=== PATIENT | female | born 1990 | race Hispanic/Latino ===

== ENCOUNTER 2017-11-02 12:58 | Emergency (ER) | payer MEDICAID, OTHER ==
[2017-11-02 17:29] LABS: Basophils % (Auto) 0.4 % (0.0-1.8); Eosinophils # (Auto) 0.1 K/mm3 (0.0-0.4); Hematocrit 44.8 % (30.3-42.9); Hemoglobin 14.8 gm/dl (10.1-14.3); Lymphocytes # (Auto) 1.5 K/mm3 (1.2-5.4); Lymphocytes % (Auto) 14.8 % (13.4-35.0); Mean Corpuscular HGB Conc 33 % (30-34); Mean Corpuscular Hemoglobin 27 pg (28-32); Mean Corpuscular Volume 81 fl (79-97); Monocytes # (Auto) 1.1 K/mm3 (0.0-0.8); Monocytes % (Auto) 10.8 % (0.0-7.3); Platelet Count 219 K/mm3 (140-440); Red Blood Count 5.52 M/mm3 (3.65-5.03); Red Cell Distribution Width 14.3 % (13.2-15.2)
--- NOTE | 2017-11-02 17:32 | Emergency Department Report ---
Blank Doc - Documentation Documentation: 27-year-old female presents to the hospital with complaints of continued cough, fevers, and generalized body aches and intermittent wheezing despite completing a course of Z-Edwardo and Medrol Dosepak several days ago. Patient had a fever 100.4 and took Motrin prior to arrival. She did receive a flu shot this season. Mild nausea without vomiting or diarrhea. Positive sore throat Patient presents with tachycardia Orthostatics positive CBC, BMP, hcg, chest x-ray NS 1 L Zofran 4mg toradol 30mg
[2017-11-02] MEDS ORDERED: TORADOL IV ONE (17:37)
[2017-11-02] MEDS ORDERED: ZOFRAN IV ONE (17:37)
[2017-11-02] MEDS ORDERED: NACL 0.9% 1000 ML 1,000 ML IV ONE ×2 (17:37→19:46)
[2017-11-02] MEDS ORDERED: TYLENOL PO ONE (17:42)
[2017-11-02 17:49] LABS: BUN/Creatinine Ratio 16; Blood Urea Nitrogen 8 mg/dL (7-17); Calcium 9.4 mg/dL (8.4-10.2); Hemolysis Index 40
--- NOTE | 2017-11-02 18:43 | XRay Report ---
FINAL REPORT PROCEDURE: PA and lateral chest x-ray TECHNIQUE: PA and lateral chest radiographs were obtained. CPT 98063 HISTORY: cough, fever COMPARISON: No prior studies are available for comparison. FINDINGS: Heart size and pulmonary vasculature appear normal. There is a small amount of patchy alveolar density present in the right and left lower lobes, left side greater than right. Some of this may represent atelectasis. Infiltrates cannot be excluded given the clinical presentation. No effusions are seen. No acute bony abnormalities are identified. IMPRESSION: Small amount of scattered patchy alveolar densities present in both lower lobes left side greater than right as described. Some of this may represent atelectasis. Subsegmental infiltrate on the left cannot be excluded.
[2017-11-02] MEDS ORDERED: PERCOCET 5/325 PO ONE (19:42)
[2017-11-02] MEDS ORDERED: DUONEB *Not for PRN Use IH ONE (19:42)
[2017-11-02] MEDS ORDERED: LEVAQUIN PO ONE (19:44)
[2017-11-02] MEDS ORDERED: ATROVENT IH ONE (20:41)
[2017-11-02] MEDS ORDERED: PROVENTIL IH ONE (20:41)
[2017-11-02 20:51] VITALS: BP 120/78
--- NOTE | 2017-11-02 20:57 | Emergency Department Report ---
- General Chief Complaint: Upper Respiratory Infection Stated Complaint: FEVER/COUGH/BODY ACHES Time Seen by Provider: 11/02/17 17:15 Source: patient Mode of arrival: Ambulatory Limitations: No Limitations - History of Present Illness Initial Comments: This is a 27-year-old female nontoxic, well nourished in appearance, no acute signs of distress presents to the ED with c/o of productive cough, fever, chills , body aches, rhinorrhea, sore throat, nasal congestion x2 days. Patient stated she was diangosed by her PCP with PNA and has been ob zpak which she just finished several days ago. Patient also stated that she was on a Medrol Dosepak. Patient stated that symptoms subsided and came back 2 days ago. Patient stated has history of asthma exacerbation during pollen season. Patient describes productive cough as yellow mucus production. Patient denies any sick contact. Patient denies any recent travels, long car, recent hospital stays. Patient denies any calf pain or calf tenderness. Patient denies any chest pain, short of breath, fever, chills, nausea, vomiting, hemoptysis, numbness, tingling, headache or stiff neck. Allergies includes Augmentin and Metroclopramide. PMH includes asthma and kidney stones. MD Complaint: cough, sore throat, rhinorrhea, nasal congestion -: days(s) (2) Severity: mild Severity scale (0 -10): 0 Consistency: constant Improves With: nothing Worsens With: nothing Associated Symptoms: fever, chills, rhinorrhea, nasal congestion, sore throat, cough. denies: myalgias, diaphoresis, headache, stiff neck, chest pain, shortness of breath, abdominal pain, nausea, vomiting, diarrhea, dysuria, rash, confusion, right sweats, weight loss, epistaxis, hoarseness, ear pain Treatments Prior to Arrival: none - Related Data Home Medications Medication Instructions Recorded Confirmed Last Taken Ibuprofen [Motrin] 800 mg PO Q8HR PRN 09/20/15 09/20/15 09/19/15 Nitrofurantoin Holmes/M-Cryst 100 mg PO Q12HR 09/20/15 09/24/15 09/23/15 21:00 [Macrobid CAP] Oxycodone HCl/Acetaminophen 1 each PO Q6HR PRN 09/20/15 09/24/15 09/23/15 21:00 [Percocet 7.5/325 mg] Pnv No.95/Ferrous Fum/Folic AC 1 each PO DAILY 09/20/15 09/24/15 09/23/15 08:00 [ Caplet] Previous Rx's Medication Instructions Recorded Last Taken Type ALBUTEROL Inhaler [ProAir HFA 2 puff IH QID PRN #1 inhalation 11/02/17 Unknown Rx Inhaler] Benzonatate [Tessalon Perles] 100 mg PO Q8HR PRN #20 capsule 11/02/17 Unknown Rx Fluconazole [Diflucan TAB] 150 mg PO ONCE #1 tablet 11/02/17 Unknown Rx Ibuprofen [Motrin] 600 mg PO Q8H PRN #30 tablet 11/02/17 Unknown Rx Levofloxacin [Levaquin TAB] 750 mg PO QDAY #7 tablet 11/02/17 Unknown Rx Prednisone [predniSONE 10 mg 10 mg PO .TAPER #1 tab.ds.pk 11/02/17 Unknown Rx (6-Day Pack, 21 Tabs)] Allergies Allergy/AdvReac Type Severity Reaction Status Date / Time amoxicillin trihydrate Allergy Hives Verified 09/20/15 18:37 [From Augmentin] potassium clavulanate Allergy Hives Verified 09/20/15 18:37 [From Augmentin] metoclopramide HCl AdvReac ANXIETY Verified 09/20/15 18:37 [From Reglan] ED Review of Systems ROS: Stated complaint: FEVER/COUGH/BODY ACHES Other details as noted in HPI Constitutional: chills, fever Eyes: denies: eye pain, eye discharge, vision change ENT: denies: ear pain, throat pain Respiratory: cough. denies: shortness of breath, wheezing Cardiovascular: denies: chest pain, palpitations Endocrine: no symptoms reported Gastrointestinal: denies: abdominal pain, nausea, diarrhea Genitourinary: denies: urgency, dysuria, discharge Musculoskeletal: denies: back pain, joint swelling, arthralgia Skin: denies: rash, lesions Neurological: denies: headache, weakness, paresthesias Psychiatric: denies: anxiety, depression Hematological/Lymphatic: denies: easy bleeding, easy bruising ED Past Medical Hx - Past Medical History Hx Hypertension: No Hx Renal Disease: No Hx Seizures: No Hx Kidney Stones: Yes Hx Asthma: Yes (Seasonal, uses PRN Albuterol, last used 7 months ago) Hx HIV: No - Surgical History Past Surgical History?: Yes Additional Surgical History: TUBAL LIGATION - Social History Smoking Status: Never Smoker Substance Use Type: None - Medications Home Medications: Home Medications Medication Instructions Recorded Confirmed Last Taken Type Ibuprofen [Motrin] 800 mg PO Q8HR PRN 09/20/15 09/20/15 09/19/15 History Nitrofurantoin Holmes/M-Cryst 100 mg PO Q12HR 09/20/15 09/24/15 09/23/15 21:00 History [Macrobid CAP] Oxycodone HCl/Acetaminophen 1 each PO Q6HR PRN 09/20/15 09/24/15 09/23/15 21:00 History [Percocet 7.5/325 mg] Pnv No.95/Ferrous Fum/Folic AC 1 each PO DAILY 09/20/15 09/24/15 09/23/15 08:00 History [ Caplet] ALBUTEROL Inhaler [ProAir HFA 2 puff IH QID PRN #1 inhalation 11/02/17 Unknown Rx Inhaler] Benzonatate [Tessalon Perles] 100 mg PO Q8HR PRN #20 capsule 11/02/17 Unknown Rx Fluconazole [Diflucan TAB] 150 mg PO ONCE #1 tablet 11/02/17 Unknown Rx Ibuprofen [Motrin] 600 mg PO Q8H PRN #30 tablet 11/02/17 Unknown Rx Levofloxacin [Levaquin TAB] 750 mg PO QDAY #7 tablet 11/02/17 Unknown Rx Prednisone [predniSONE 10 mg 10 mg PO .TAPER #1 tab.ds.pk 11/02/17 Unknown Rx (6-Day Pack, 21 Tabs)] ED Physical Exam - General Limitations: No Limitations General appearance: alert, in no apparent distress - Head Head exam: Present: atraumatic, normocephalic - Eye Eye exam: Present: normal appearance Pupils: Present: normal accommodation - ENT ENT exam: Present: mucous membranes moist, TM's normal bilaterally, normal external ear exam - Expanded ENT Exam Expanded Ear exam: Present: normal external inspection Mouth exam: Present: normal external inspection, tongue normal. Absent: drooling, trismus, muffled voice, tongue elevation, laceration Teeth exam: Present: normal inspection Throat exam: Positive: tonsillar erythema, other (Uvula midline. No abscess or swelling. ). Negative: tonsillomegaly, tonsillar exudate, R peritonsillar mass , L peritonsillar mass - Neck Neck exam: Present: normal inspection, full ROM. Absent: tenderness, meningismus, lymphadenopathy - Respiratory Respiratory exam: Present: normal lung sounds bilaterally, wheezes (bilateral upper lobes). Absent: respiratory distress, rales, rhonchi, stridor, chest wall tenderness, accessory muscle use, decreased breath sounds, prolonged expiratory - Cardiovascular Cardiovascular Exam: Present: regular rate, normal rhythm, tachycardia, normal heart sounds. Absent: irregular rhythm, systolic murmur, diastolic murmur, rubs , gallop - GI/Abdominal GI/Abdominal exam: Present: soft, normal bowel sounds. Absent: distended, tenderness, guarding, rebound, rigid, diminished bowel sounds - Rectal Rectal exam: Present: deferred - Extremities Exam Extremities exam: Present: normal inspection, full ROM, normal capillary refill. Absent: tenderness, calf tenderness - Back Exam Back exam: Present: normal inspection, full ROM - Neurological Exam Neurological exam: Present: alert, oriented X3, normal gait - Psychiatric Psychiatric exam: Present: normal affect, normal mood - Skin Skin exam: Present: warm, dry, intact, normal color. Absent: rash ED Course Vital Signs 11/02/17 11/02/17 11/02/17 13:02 17:40 17:59 Temperature 98.1 F 99.6 F Pulse Rate 110 H Pulse Rate [ Anterior Bilateral Throughout] Respiratory 19 20 Rate Respiratory Rate [Anterior Bilateral Throughout] Blood Pressure 119/77 Blood Pressure [Left] O2 Sat by Pulse 92 Oximetry 11/02/17 11/02/17 11/02/17 19:29 19:53 20:50 Temperature 98.9 F Pulse Rate 103 H 96 H Pulse Rate [ 113 H Anterior Bilateral Throughout] Respiratory 16 18 Rate Respiratory 20 Rate [Anterior Bilateral Throughout] Blood Pressure 103/61 Blood Pressure 120/78 [Left] O2 Sat by Pulse 93 94 Oximetry - Reevaluation(s) Reevaluation #1: 11/02/17 21:06 Patient is speaking in full sentences with no signs of distress noted. - Consultations Consultation #1: 11/02/17 21:06 Patient has been consulted with Dr. Ibrahim about patient history, physical exam, and labs and examined and screened patient and agrees to ED plan of care. ED Medical Decision Making - Lab Data Result diagrams: 11/02/17 17:05 11/02/17 17:05 - Medical Decision Making This is a 27-year-old female that presents with PNA and asthma exacerbation. Patient is stable and was examined by me and Dr. Ibrahim. Chest x-ray has been obtained and dictated by radiologist. Patient is notified of x-ray results with no questions noted. Patient received the first dose of LEvo and patient is discharged with Levo. Patient also received hydration and neb treatments which patient stated symptoms has subsided and resolved. Patients wheezing has subsided. Heart rate and pulse OX better prior to discharge. Patient was instructed to increase hydration, rest and take Motrin for fever episodes. Patient received tesslone perrls in the ED. Vitals stable. Patient is nonfebrile and normal heart rate. Patient was instructed Follow-up with a primary care doctor in 3-5 days or if symptoms worsen and continue return to emergency room as soon as possible. At time time of discharge, the patient does not seem toxic or ill in appearance. No acute signs of distress noted. Patient agrees to discharge treatment plan of care. No further questions noted by the patient. Critical care attestation.: If time is entered above; I have spent that time in minutes in the direct care of this critically ill patient, excluding procedure time. ED Disposition Clinical Impression: PNA (pneumonia) Qualifiers: Pneumonia type: due to unspecified organism Laterality: left Lung location: unspecified part of lung Qualified Code(s): J18.9 - Pneumonia, unspecified organism Asthma exacerbation Qualifiers: Asthma severity: mild Asthma persistence: intermittent Qualified Code(s): J45.21 - Mild intermittent asthma with (acute) exacerbation Disposition: DC-01 TO HOME OR SELFCARE Is pt being admited?: No Does the pt Need Aspirin: No Condition: Stable Instructions: Asthma (ED), Bacterial Pneumonia (ED) Additional Instructions: Follow-up with a primary care doctor in 3-5 days or if symptoms worsen and continue return to emergency room as soon as possible. Prescriptions: ALBUTEROL Inhaler [ProAir HFA Inhaler] 2 puff IH QID PRN #1 inhalation PRN Reason: Shortness Of Breath Benzonatate [Tessalon Perles] 100 mg PO Q8HR PRN #20 capsule PRN Reason: Cough Fluconazole [Diflucan TAB] 150 mg PO ONCE #1 tablet Ibuprofen [Motrin] 600 mg PO Q8H PRN #30 tablet PRN Reason: Pain Levofloxacin [Levaquin TAB] 750 mg PO QDAY #7 tablet Prednisone [predniSONE 10 mg (6-Day Pack, 21 Tabs)] 10 mg PO .TAPER #1 tab.ds.pk Referrals: CHRISTOPHE SCHERER MD [Primary Care Provider] - 3-5 Days PRIMARY MD JUANITO [Referring] - 3-5 Days JAROD CONWAY MD [Staff Physician] - 3-5 Days [facility] [Outside] - 3-[address] [facility] [Outside] - 3-5 Days Forms: Work/School Release Form(ED)
== END 2017-11-02 21:55 | disposition home or self-care (01) ==
LOC: ED 12:58
DX: J18.9 Pneumonia, unspecified organism (principal); J45.21 Mild intermittent asthma with (acute) exacerbation
CPT/HCPCS: 36415; 71046; 80048; 84703; 85025; 94640; 96361; 96374; 96375; 99284; J1885; J2405; J2930; J7030

== ENCOUNTER 2017-11-03 22:21 | Inpatient (IN) | payer OTHER ==
--- NOTE | 2017-11-04 01:26 | XRay Report ---
FINAL REPORT EXAM: XR CHEST ROUTINE 2V HISTORY: Shortness of breath TECHNIQUE: PA and lateral views of the chest were submitted. Comparison is made to the study of 11/02/2017. FINDINGS: The heart size and mediastinum appear normal. There is minimal atelectatic changes in left lung base. Pleural fluid is not seen. The skeletal structures appear well maintained. IMPRESSION: Minimal atelectatic changes left lung base. No evidence of pneumonia or congestion.
[2017-11-04 02:05] LABS: Basophils % (Auto) 0.1 % (0.0-1.8); Hematocrit 39.7 % (30.3-42.9); Hemoglobin 13.2 gm/dl (10.1-14.3); Lymphocytes # (Auto) 1.1 K/mm3 (1.2-5.4); Lymphocytes % (Auto) 8.6 % (13.4-35.0); Mean Corpuscular HGB Conc 33 % (30-34); Mean Corpuscular Hemoglobin 27 pg (28-32); Mean Corpuscular Volume 80 fl (79-97); Monocytes # (Auto) 0.8 K/mm3 (0.0-0.8); Monocytes % (Auto) 6.1 % (0.0-7.3); Platelet Count 264 K/mm3 (140-440); Red Blood Count 4.96 M/mm3 (3.65-5.03); Red Cell Distribution Width 14.8 % (13.2-15.2)
[2017-11-04 02:14] LABS: BUN/Creatinine Ratio 25; Blood Urea Nitrogen 10 mg/dL (7-17); Calcium 9.2 mg/dL (8.4-10.2); Hemolysis Index 8
[2017-11-04] MEDS ORDERED: ATROVENT IH ONE (08:41)
[2017-11-04] MEDS ORDERED: PROVENTIL IH ONE (08:41)
[2017-11-04] MEDS ORDERED: NACL 0.9% 1000 ML 1,000 ML IV ONE (08:41)
[2017-11-04] MEDS ORDERED: MORPHINE IV ONE (08:42)
[2017-11-04] MEDS ORDERED: ZOFRAN IV ONE (08:43)
--- NOTE | 2017-11-04 08:48 | Emergency Department Report ---
- General Chief Complaint: Dyspnea/Respdistress Stated Complaint: KEN Time Seen by Provider: 11/04/17 08:30 Source: patient Mode of arrival: Ambulatory Limitations: No Limitations - History of Present Illness Initial Comments: 27-year-old female with past medical history of asthma presents to the hospital with persistent cough, chills, and shortness of breath. Patient was seen and evaluated in the ER by myself on November 02. At that time x-ray suggestive of bilateral pneumonia. Patient had orthostatic vital signs with increased heart rate with standing and wheezing during ED presentation. After receiving Solu- Medrol, Levaquin, normal saline, cough and pain medicine patient's symptoms improved. Patient offered admission but declined because she felt better. Since being discharged she had taking the prescribed Levaquin, prednisone, Motrin, Tessalon Perles, and albuterol treatments she reports feeling worse instead of better. She continues to have cough, chills, and shortness of breath. She complains of bilateral burning pain to her chest worse with inspiration. Prior to her presentation on the patient had completed a course of Medrol Dosepak and Z-Edwardo. - Related Data Home Medications Medication Instructions Recorded Confirmed Last Taken Ibuprofen [Motrin] 800 mg PO Q8HR PRN 09/20/15 09/20/15 09/19/15 Nitrofurantoin Nobles/M-Cryst 100 mg PO Q12HR 09/20/15 09/24/15 09/23/15 21:00 [Macrobid CAP] Oxycodone HCl/Acetaminophen 1 each PO Q6HR PRN 09/20/15 09/24/15 09/23/15 21:00 [Percocet 7.5/325 mg] Pnv No.95/Ferrous Fum/Folic AC 1 each PO DAILY 09/20/15 09/24/15 09/23/15 08:00 [ Caplet] Previous Rx's Medication Instructions Recorded Last Taken Type ALBUTEROL Inhaler [ProAir HFA 2 puff IH QID PRN #1 inhalation 11/02/17 Unknown Rx Inhaler] Benzonatate [Tessalon Perles] 100 mg PO Q8HR PRN #20 capsule 11/02/17 Unknown Rx Fluconazole [Diflucan TAB] 150 mg PO ONCE #1 tablet 11/02/17 Unknown Rx Ibuprofen [Motrin] 600 mg PO Q8H PRN #30 tablet 11/02/17 Unknown Rx Levofloxacin [Levaquin TAB] 750 mg PO QDAY #7 tablet 11/02/17 Unknown Rx Prednisone [predniSONE 10 mg 10 mg PO .TAPER #1 tab.ds.pk 11/02/17 Unknown Rx (6-Day Pack, 21 Tabs)] Allergies Allergy/AdvReac Type Severity Reaction Status Date / Time amoxicillin trihydrate Allergy Hives Verified 09/20/15 18:37 [From Augmentin] potassium clavulanate Allergy Hives Verified 09/20/15 18:37 [From Augmentin] metoclopramide HCl AdvReac ANXIETY Verified 09/20/15 18:37 [From Reglan] ED Review of Systems ROS: Stated complaint: KEN Other details as noted in HPI Comment: All other systems reviewed and negative ED Past Medical Hx - Past Medical History Previous Medical History?: Yes Hx Hypertension: No Hx Renal Disease: No Hx Seizures: No Hx Kidney Stones: Yes Hx Asthma: Yes (Seasonal, uses PRN Albuterol, last used 7 months ago) Hx HIV: No - Surgical History Past Surgical History?: Yes Additional Surgical History: TUBAL LIGATION - Social History Smoking Status: Never Smoker - Medications Home Medications: Home Medications Medication Instructions Recorded Confirmed Last Taken Type Ibuprofen [Motrin] 800 mg PO Q8HR PRN 09/20/15 09/20/15 09/19/15 History Nitrofurantoin Nobles/M-Cryst 100 mg PO Q12HR 09/20/15 09/24/15 09/23/15 21:00 History [Macrobid CAP] Oxycodone HCl/Acetaminophen 1 each PO Q6HR PRN 09/20/15 09/24/15 09/23/15 21:00 History [Percocet 7.5/325 mg] Pnv No.95/Ferrous Fum/Folic AC 1 each PO DAILY 09/20/15 09/24/15 09/23/15 08:00 History [ Caplet] ALBUTEROL Inhaler [ProAir HFA 2 puff IH QID PRN #1 inhalation 11/02/17 Unknown Rx Inhaler] Benzonatate [Tessalon Perles] 100 mg PO Q8HR PRN #20 capsule 11/02/17 Unknown Rx Fluconazole [Diflucan TAB] 150 mg PO ONCE #1 tablet 11/02/17 Unknown Rx Ibuprofen [Motrin] 600 mg PO Q8H PRN #30 tablet 11/02/17 Unknown Rx Levofloxacin [Levaquin TAB] 750 mg PO QDAY #7 tablet 11/02/17 Unknown Rx Prednisone [predniSONE 10 mg 10 mg PO .TAPER #1 tab.ds.pk 11/02/17 Unknown Rx (6-Day Pack, 21 Tabs)] ED Physical Exam - General Limitations: No Limitations - Other Other exam information: General: No limitations, patient is alert in no acute distress Head exam: Atraumatic, normocephalic Eyes exam: Normal appearance ENT: Moist mucous membrane, normal oropharynx Neck exam: Normal inspection, full range of motion, no meningismus nontender Respiratory exam: No tachypnea, bilateral Cardiovascular: Tachycardic regular rhythm Abdomen: Soft, nondistended, and nontender, with normal bowel sounds, no rebound, or guarding Extremity: Full range of motion normal inspection no deformity, tenderness or edema Back: Normal Inspection, full range of motion, no tenderness Neurologic: Alert, oriented x3, cranial nerves intact, no motor or sensory deficit Psychiatric: normal affect, normal mood Skin: Warm, dry, intact ED Course Vital Signs 11/04/17 11/04/17 11/04/17 01:08 04:33 07:28 Temperature 97.4 F L 98.0 F Pulse Rate 83 100 H Pulse Rate [ Anterior Bilateral Throughout] Respiratory 18 16 Rate Respiratory Rate [Anterior Bilateral Throughout] Blood Pressure 117/84 118/65 Blood Pressure [Left] O2 Sat by Pulse 94 96 97 Oximetry 11/04/17 11/04/17 11/04/17 07:30 07:35 07:45 Temperature 98.3 F Pulse Rate 121 H 120 H 107 H Pulse Rate [ Anterior Bilateral Throughout] Respiratory 25 H 20 18 Rate Respiratory Rate [Anterior Bilateral Throughout] Blood Pressure 110/59 Blood Pressure 116/60 [Left] O2 Sat by Pulse 97 98 89 Oximetry 11/04/17 11/04/17 11/04/17 08:00 08:15 08:30 Temperature Pulse Rate 121 H 119 H 129 H Pulse Rate [ Anterior Bilateral Throughout] Respiratory 21 19 20 Rate Respiratory Rate [Anterior Bilateral Throughout] Blood Pressure 121/55 118/69 118/69 Blood Pressure [Left] O2 Sat by Pulse 93 89 97 Oximetry 11/04/17 11/04/17 11/04/17 08:46 09:00 09:05 Temperature Pulse Rate 117 H 118 H Pulse Rate [ 116 H Anterior Bilateral Throughout] Respiratory 20 25 H Rate Respiratory 19 Rate [Anterior Bilateral Throughout] Blood Pressure 118/69 118/69 Blood Pressure [Left] O2 Sat by Pulse 95 100 Oximetry 11/04/17 11/04/17 11/04/17 09:16 09:27 09:57 Temperature Pulse Rate 133 H Pulse Rate [ Anterior Bilateral Throughout] Respiratory 22 25 H 13 Rate Respiratory Rate [Anterior Bilateral Throughout] Blood Pressure 118/69 Blood Pressure [Left] O2 Sat by Pulse 96 Oximetry - Reevaluation(s) Reevaluation #1: 11/04/17 10:27 + tachy increased with nebs EKg done with nebs in progress ED Medical Decision Making - Lab Data Result diagrams: 11/04/17 01:21 11/04/17 01:21 Lab Results 11/04/17 11/04/17 Range/Units 01:21 01:21 WBC 13.2 H (4.5-11.0) K/mm3 RBC 4.96 (3.65-5.03) M/mm3 Hgb 13.2 (10.1-14.3) gm/dl Hct 39.7 (30.3-42.9) % MCV 80 (79-97) fl MCH 27 L (28-32) pg MCHC 33 (30-34) % RDW 14.8 (13.2-15.2) % Plt Count 264 (140-440) K/mm3 Lymph % (Auto) 8.6 L (13.4-35.0) % Nobles % (Auto) 6.1 (0.0-7.3) % Eos % (Auto) 0.0 (0.0-4.3) % Baso % (Auto) 0.1 (0.0-1.8) % Lymph # 1.1 L (1.2-5.4) K/mm3 Nobles # 0.8 (0.0-0.8) K/mm3 Eos # 0.0 (0.0-0.4) K/mm3 Baso # 0.0 (0.0-0.1) K/mm3 Seg Neutrophils % 85.2 H (40.0-70.0) % Seg Neutrophils # 11.2 H (1.8-7.7) K/mm3 Sodium 139 (137-145) mmol/L Potassium 4.7 D (3.6-5.0) mmol/L Chloride 101.1 (98-107) mmol/L Carbon Dioxide 22 (22-30) mmol/L Anion Gap 21 mmol/L BUN 10 (7-17) mg/dL Creatinine 0.4 L (0.7-1.2) mg/dL Estimated GFR > 60 ml/min BUN/Creatinine Ratio 25 % Glucose 167 H (65-100) mg/dL Calcium 9.2 (8.4-10.2) mg/dL - EKG Data -: EKG Interpreted by Me (low voltage precordial leada) EKG shows normal: sinus rhythm, axis (23), QRS complexes (88), ST-T waves (no stemi/t inv) Rate: tachycardia (128) - EKG Data When compared to previous EKG there are: no significant change - Radiology Data Radiology results: report reviewed read by radiology cxr IMPRESSION: Minimal atelectatic changes left lung base. No evidence of pneumonia or congestion. ct chest IV contrast: IMPRESSION: Minimal bilateral perihilar/peribronchial air space densities concerning for an early infectious process. No consolidation or pleural effusion. - Medical Decision Making Plan to admit patient to the hospital for failed outpatient treatment 2. Plan to admit patient to hospital for further treatment ED treatment includes normal saline, Solu-Medrol IV, albuterol and Atrovent nebs. Patient took her Levaquin and prednisone prior to arrival today. Hospitalist informed of admission ekg with tachycardia but pt receiving Albuterol/atrovent Nebs - Differential Diagnosis pneumonia, bronchitis, asthma, viral syndrome Critical Care Time: No Critical care attestation.: If time is entered above; I have spent that time in minutes in the direct care of this critically ill patient, excluding procedure time. ED Disposition Clinical Impression: Asthma exacerbation, PNA (pneumonia), Failure of outpatient treatment, Pleuritic chest pain, Obesity Disposition: OP ADMIT IP TO THIS HOSP Is pt being admited?: Yes Condition: Stable Time of Disposition: 10:25 (Hosp/Dr RAMOS/Dr Kincaid)
--- NOTE | 2017-11-04 10:00 | Cat Scan Report ---
CT CHEST WITH CONTRAST: HISTORY: Cough, fever, pleuritic chest pain. COMPARISON: Chest x-ray performed the same day. TECHNIQUE: Helical CT in 1.25mm intervals following IV contrast. Sagittal and coronal reformatted images. FINDINGS: Thyroid gland: Normal. Tracheobronchial tree: Normal. Esophagus: Normal. Heart: Normal. Pericardium: Normal. Mediastinum: Normal. Lung Daniels: Minimal peribronchial air space densities are identified in the perihilar regions bilaterally. The etiology of this is unclear but this probably represents an early infectious process. There is no evidence for consolidation or mass. Pleural Spaces: Normal. Musculoskeletal: Normal. IMPRESSION: Minimal bilateral perihilar/peribronchial air space densities concerning for an early infectious process. No consolidation or pleural effusion.
--- NOTE | 2017-11-04 11:16 | History and Physical Report ---
History of Present Illness Date of examination: 11/04/17 Date of admission: 11/04/17 10:34 Chief complaint: sob History of present illness: 27-year-old female with past medical history of asthma presents to the hospital with persistent cough, chills, and shortness of breath. Patient was seen and evaluated in the ER by Dr. Ibrahim on November 02. The patient had a chest x-ray suggestive of bilateral pneumonia. Patient had orthostatic vital signs with increased heart rate with standing and wheezing during ED presentation. After receiving Solu-Medrol, Levaquin, normal saline, cough and pain medicine patient' s symptoms improved. Patient was offered admission but declined because she felt better. Since being discharged, she had taking the prescribed Levaquin, prednisone, Motrin, Tessalon Perles, and albuterol treatments but reports feeling worse. She continues to have cough, chills, and shortness of breath. She complains of bilateral burning pain to her chest worse with inspiration. Prior to her presentation on the , the patient had completed a course of Medrol Dosepak and Z-Edwardo. The patient denies any headache or visual disturbances. No nausea vomiting or diarrhea. Patient reports no history of intubation. Patient reports last hospitalization for asthma exacerbation/ pneumonia was 5 years ago. Past History Past Medical History: other (asthma) Past Surgical History: No surgical history Social history: no significant social history Family history: no significant family history Medications and Allergies Allergies Allergy/AdvReac Type Severity Reaction Status Date / Time amoxicillin trihydrate Allergy Hives Verified 09/20/15 18:37 [From Augmentin] potassium clavulanate Allergy Hives Verified 09/20/15 18:37 [From Augmentin] metoclopramide HCl AdvReac ANXIETY Verified 09/20/15 18:37 [From Reglan] Home Medications Medication Instructions Recorded Confirmed Last Taken Type ALBUTEROL Inhaler [ProAir HFA 2 puff IH QID PRN #1 inhalation 11/02/17 11/04/17 11/03/17 Rx Inhaler] Benzonatate [Tessalon Perles] 100 mg PO Q8HR PRN #20 capsule 11/02/17 11/04/17 11/03/17 Rx Fluconazole [Diflucan TAB] 150 mg PO ONCE #1 tablet 11/02/17 11/04/17 11/03/17 Rx Ibuprofen [Motrin] 600 mg PO Q8H PRN #30 tablet 11/02/17 11/04/17 11/03/17 Rx Levofloxacin [Levaquin TAB] 750 mg PO QDAY #7 tablet 11/02/17 11/04/17 11/03/17 Rx Prednisone [predniSONE 10 mg 10 mg PO .TAPER #1 tab.ds.pk 11/02/17 11/04/17 Rx (6-Day Pack, 21 Tabs)] Review of Systems All systems: negative Exam - Constitutional Vitals: Temp Pulse Resp BP Pulse Ox 98.3 F 133 H 16 118/59 92 11/04/17 07:35 11/04/17 09:16 11/04/17 11:00 11/04/17 11:00 11/04/17 11:00 General appearance: Present: no acute distress, well-nourished - EENT Eyes: Present: PERRL ENT: hearing intact, clear oral mucosa - Neck Neck: Present: supple, normal ROM - Respiratory Respiratory effort: normal Respiratory: bilateral: diminished, wheezing - Cardiovascular Heart Sounds: Present: S1 & S2. Absent: rub, click - Extremities Extremities: pulses symmetrical, No edema Peripheral Pulses: within normal limits - Abdominal General gastrointestinal: Present: soft, non-tender, non-distended, normal bowel sounds Female genitourinary: Present: normal - Integumentary Integumentary: Present: clear, warm, dry - Musculoskeletal Musculoskeletal: gait normal, strength equal bilaterally - Psychiatric Psychiatric: appropriate mood/affect, intact judgment & insight - Neurologic Neurologic: CNII-XII intact, moves all extremities Results - Labs CBC & Chem 7: 11/04/17 01:21 11/04/17 01:21 Labs: Laboratory Last Values WBC 13.2 K/mm3 (4.5-11.0) H 11/04/17 01:21 RBC 4.96 M/mm3 (3.65-5.03) 11/04/17 01:21 Hgb 13.2 gm/dl (10.1-14.3) 11/04/17 01:21 Hct 39.7 % (30.3-42.9) 11/04/17 01:21 MCV 80 fl (79-97) 11/04/17 01:21 MCH 27 pg (28-32) L 11/04/17 01:21 MCHC 33 % (30-34) 11/04/17 01:21 RDW 14.8 % (13.2-15.2) 11/04/17 01:21 Plt Count 264 K/mm3 (140-440) 11/04/17 01:21 Lymph % (Auto) 8.6 % (13.4-35.0) L 11/04/17 01:21 [place] % (Auto) 6.1 % (0.0-7.3) 11/04/17 01:21 Eos % (Auto) 0.0 % (0.0-4.3) 11/04/17 01:21 Baso % (Auto) 0.1 % (0.0-1.8) 11/04/17 01:21 Lymph # 1.1 K/mm3 (1.2-5.4) L 11/04/17 01:21 [place] # 0.8 K/mm3 (0.0-0.8) 11/04/17 01:21 Eos # 0.0 K/mm3 (0.0-0.4) 11/04/17 01:21 Baso # 0.0 K/mm3 (0.0-0.1) 11/04/17 01:21 Seg Neutrophils % 85.2 % (40.0-70.0) H 11/04/17 01:21 Seg Neutrophils # 11.2 K/mm3 (1.8-7.7) H 11/04/17 01:21 Sodium 139 mmol/L (137-145) 11/04/17 01:21 Potassium 4.7 mmol/L (3.6-5.0) D 11/04/17 01:21 Chloride 101.1 mmol/L (98-107) 11/04/17 01:21 Carbon Dioxide 22 mmol/L (22-30) 11/04/17 01:21 Anion Gap 21 mmol/L 11/04/17 01:21 BUN 10 mg/dL (7-17) 11/04/17 01:21 Creatinine 0.4 mg/dL (0.7-1.2) L 11/04/17 01:21 Estimated GFR > 60 ml/min 11/04/17 01:21 BUN/Creatinine Ratio 25 % 11/04/17 01:21 Glucose 167 mg/dL (65-100) H 11/04/17 01:21 Calcium 9.2 mg/dL (8.4-10.2) 11/04/17 01:21 Assessment and Plan Assessment and plan: Acute hypoxemic respiratory failure. Continue O2 to maintain sats greater than 92%. BiPAP as clinically indicated. Follow-up ABG. Sepsis. Patient will be placed on the sepsis pathway and started on IV antibiotics. Etiology secondary to pneumonia. Follow-up blood cultures and lactic acid levels. Bilateral pneumonia. Continue as above. Acute asthma exacerbation. Patient will receive systemic steroids, bronchodilators and nebulizer treatments. DVT prophylaxis. SCDs
[2017-11-04] MEDS ORDERED: ZOFRAN IV PRN (11:19)
[2017-11-04] MEDS ORDERED: SODIUM CHLORIDE FLUSH SYRINGE 10 ML IV PRN (11:19)
[2017-11-04] MEDS: TYLENOL PO PRN ×2 (12:51→20:38)
[2017-11-04] MEDS: LEVAQUIN 750MG/150ML 750 MG/150 ML BAG IV SCH (12:53)
[2017-11-04] MEDS: DUONEB *Not for PRN Use IH SCH ×2 (18:55→19:39)
[2017-11-04] MEDS: PULMICORT IH SCH ×2 (18:56→19:39)
[2017-11-04] MEDS: SINGULAIR PO SCH (22:34)
[2017-11-04] MEDS: MORPHINE IV PRN (22:35)
[2017-11-04] MEDS: SODIUM CHLORIDE FLUSH SYRINGE 10 ML IV SCH (22:35)
[2017-11-05] MEDS: DUONEB *Not for PRN Use IH SCH ×4 (02:21→18:59)
[2017-11-05 06:37] LABS: Basophils % (Auto) 0.3 % (0.0-1.8); Hematocrit 37.9 % (30.3-42.9); Hemoglobin 12.8 gm/dl (10.1-14.3); Lymphocytes # (Auto) 1.2 K/mm3 (1.2-5.4); Lymphocytes % (Auto) 12.9 % (13.4-35.0); Mean Corpuscular HGB Conc 34 % (30-34); Mean Corpuscular Hemoglobin 27 pg (28-32); Mean Corpuscular Volume 80 fl (79-97); Monocytes # (Auto) 0.4 K/mm3 (0.0-0.8); Monocytes % (Auto) 3.9 % (0.0-7.3); Platelet Count 241 K/mm3 (140-440); Red Blood Count 4.74 M/mm3 (3.65-5.03); Red Cell Distribution Width 14.7 % (13.2-15.2)
[2017-11-05 06:57] LABS: BUN/Creatinine Ratio 22; Blood Urea Nitrogen 11 mg/dL (7-17); Calcium 9.3 mg/dL (8.4-10.2); Hemolysis Index 3
[2017-11-05] MEDS: PULMICORT IH SCH ×2 (07:50→19:17)
[2017-11-05] MEDS: LEVAQUIN 750MG/150ML 750 MG/150 ML BAG IV SCH (09:01)
[2017-11-05] MEDS: SODIUM CHLORIDE FLUSH SYRINGE 10 ML IV SCH ×2 (09:02→22:45)
[2017-11-05] MEDS: MORPHINE IV PRN ×3 (09:22→23:02)
--- NOTE | 2017-11-05 10:33 | Progress Note ---
Assessment and Plan Assessment and plan: Acute hypoxemic respiratory failure. Continue O2 to maintain sats greater than 92%. BiPAP as clinically indicated. Sepsis. Continue to follow-up blood cultures. Bilateral pneumonia. Continue as above. Acute asthma exacerbation. Continue systemic steroids, bronchodilators and nebulizer treatments. DVT prophylaxis. SCDs History Interval history: No new issues overnight. Hospitalist Physical - Constitutional Vitals: Temp Pulse Resp BP Pulse Ox 97.5 F L 118 H 20 133/76 89 11/05/17 08:08 11/05/17 08:10 11/05/17 08:10 11/05/17 08:08 11/05/17 08:08 General appearance: Present: no acute distress, well-nourished - EENT Eyes: Present: PERRL, EOM intact ENT: hearing intact, clear oral mucosa, dentition normal - Neck Neck: Present: supple, normal ROM - Respiratory Respiratory effort: normal Respiratory: bilateral: CTA - Cardiovascular Rhythm: regular Heart Sounds: Present: S1 & S2. Absent: gallop, rub - Extremities Extremities: no ischemia, No edema, Full ROM - Abdominal General gastrointestinal: soft, non-tender, non-distended, normal bowel sounds - Integumentary Integumentary: Present: clear, warm, dry - Neurologic Neurologic: CNII-XII intact, moves all extremities Results - Labs CBC & Chem 7: 11/05/17 05:54 11/05/17 05:54 Labs: Laboratory Last Values WBC 9.4 K/mm3 (4.5-11.0) 11/05/17 05:54 RBC 4.74 M/mm3 (3.65-5.03) 11/05/17 05:54 Hgb 12.8 gm/dl (10.1-14.3) 11/05/17 05:54 Hct 37.9 % (30.3-42.9) 11/05/17 05:54 MCV 80 fl (79-97) 11/05/17 05:54 MCH 27 pg (28-32) L 11/05/17 05:54 MCHC 34 % (30-34) 11/05/17 05:54 RDW 14.7 % (13.2-15.2) 11/05/17 05:54 Plt Count 241 K/mm3 (140-440) 11/05/17 05:54 Lymph % (Auto) 12.9 % (13.4-35.0) L 11/05/17 05:54 [place] % (Auto) 3.9 % (0.0-7.3) 11/05/17 05:54 Eos % (Auto) 0.0 % (0.0-4.3) 11/05/17 05:54 Baso % (Auto) 0.3 % (0.0-1.8) 11/05/17 05:54 Lymph # 1.2 K/mm3 (1.2-5.4) 11/05/17 05:54 [place] # 0.4 K/mm3 (0.0-0.8) 11/05/17 05:54 Eos # 0.0 K/mm3 (0.0-0.4) 11/05/17 05:54 Baso # 0.0 K/mm3 (0.0-0.1) 11/05/17 05:54 Seg Neutrophils % 82.9 % (40.0-70.0) H 11/05/17 05:54 Seg Neutrophils # 7.8 K/mm3 (1.8-7.7) H 11/05/17 05:54 Sodium 138 mmol/L (137-145) 11/05/17 05:54 Potassium 4.4 mmol/L (3.6-5.0) 11/05/17 05:54 Chloride 98.1 mmol/L (98-107) 11/05/17 05:54 Carbon Dioxide 24 mmol/L (22-30) 11/05/17 05:54 Anion Gap 20 mmol/L 11/05/17 05:54 BUN 11 mg/dL (7-17) 11/05/17 05:54 Creatinine 0.5 mg/dL (0.7-1.2) L 11/05/17 05:54 Estimated GFR > 60 ml/min 11/05/17 05:54 BUN/Creatinine Ratio 22 % 11/05/17 05:54 Glucose 241 mg/dL (65-100) H 11/05/17 05:54 Lactic Acid 2.90 mmol/L (0.7-2.0) H* 11/05/17 09:09 Calcium 9.3 mg/dL (8.4-10.2) 11/05/17 05:54 Blood Type A POSITIVE 11/04/17 12:52 Antibody Screen Negative 11/04/17 12:52
[2017-11-05] MEDS: SINGULAIR PO SCH (22:44)
[2017-11-05] MEDS: PROVENTIL IH PRN (23:06)
[2017-11-06] MEDS: DUONEB *Not for PRN Use IH SCH ×4 (01:52→20:22)
[2017-11-06] MEDS: PROVENTIL IH PRN (06:33)
[2017-11-06] MEDS: MORPHINE IV PRN ×4 (06:36→21:42)
[2017-11-06 07:24] LABS: Hematocrit 40.5 % (30.3-42.9); Mean Corpuscular HGB Conc 32 % (30-34); Mean Corpuscular Volume 81 fl (79-97); Platelet Count 253 K/mm3 (140-440); Red Blood Count 5.03 M/mm3 (3.65-5.03); Red Cell Distribution Width 14.4 % (13.2-15.2)
--- NOTE | 2017-11-06 07:42 | Discharge Summary ---
Providers - Providers Date of Admission: 11/04/17 10:34 Date of discharge: 11/07/17 Attending physician: SHAUNA FULLER Primary care physician: VLADISLAV SOLOMON MD Hospitalization Reason for admission: sob Condition: Stable Hospital course: This is a 27-year-old female with significant past medical history of asthma who presented through the emergency department with complaints of dyspnea. Patient was admitted with diagnosis of sepsis, bilateral pneumonia, acute hypoxemic respiratory failure and acute asthma exacerbation. Patient received treatments with IV antibiotics, systemic steroids, bronchodilators/nebulizers and O2 for supportive care. Patient has slow but significant improvement throughout hospitalization. Patient is felt to have received maximal Hospital benefit. Therefore, patient will be discharged home and is to follow with her primary care physician. [place] discharge time 32 minutes. Disposition: DC-01 TO HOME OR SELFCARE Time spent for discharge: 32 - Discharge Diagnoses (1) Sepsis Status: Acute (2) Acute respiratory failure with hypoxia Status: Acute (3) Asthma exacerbation Status: Acute (4) PNA (pneumonia) Status: Acute Core Measure Documentation - Palliative Care Palliative Care/ Comfort Measures: Not Applicable - Core Measures Any of the following diagnoses?: none Exam - Constitutional Vitals: Temp Pulse Resp BP Pulse Ox 97.8 F 95 H 20 116/79 90 11/05/17 16:38 11/06/17 06:33 11/06/17 06:33 11/05/17 20:07 11/05/17 22:00 General appearance: Present: no acute distress, well-nourished - EENT Eyes: Present: PERRL ENT: hearing intact, clear oral mucosa - Neck Neck: Present: supple, normal ROM - Respiratory Respiratory effort: normal Respiratory: bilateral: CTA - Cardiovascular Heart Sounds: Present: S1 & S2. Absent: rub, click - Extremities Extremities: pulses symmetrical, No edema Peripheral Pulses: within normal limits - Abdominal General gastrointestinal: Present: soft, non-tender, non-distended, normal bowel sounds Female genitourinary: Present: normal - Integumentary Integumentary: Present: clear, warm, dry - Musculoskeletal Musculoskeletal: gait normal, strength equal bilaterally - Psychiatric Psychiatric: appropriate mood/affect, intact judgment & insight - Neurologic Neurologic: CNII-XII intact, moves all extremities Plan Activity: no restrictions Weight Bearing Status: Full Weight Bearing Diet: regular Follow up with: PRIMARY CARE,MD [Primary Care Provider] - 7 Days Prescriptions: ALBUTEROL Inhaler [ProAir HFA Inhaler] 2 puff IH QID PRN #1 inhalation PRN Reason: Shortness Of Breath Benzonatate [Tessalon Perles] 100 mg PO Q8HR PRN #20 capsule PRN Reason: Cough Budesonide [Pulmicort Respules] 0.5 mg IH Q12HRT #30 nebu Ipratropium/Albuterol Sulfate [DUONEB *Not for PRN Use*] 1 ampul IH Q6HRT #30 ampul.neb Levofloxacin [Levaquin TAB] 750 mg PO DAILY #7 tablet Montelukast [Singulair] 10 mg PO QHS #30 tablet Prednisone [predniSONE 10 mg (6-Day Pack, 21 Tabs)] 10 mg PO .TAPER #1 tab.ds.pk
[2017-11-06 07:48] LABS: Mean Corpuscular Hemoglobin 26 pg (28-32)
[2017-11-06 07:50] LABS: BUN/Creatinine Ratio 34; Blood Urea Nitrogen 17 mg/dL (7-17); Calcium 9.6 mg/dL (8.4-10.2); Hemolysis Index 8
[2017-11-06] MEDS: PULMICORT IH SCH ×2 (08:05→20:22)
[2017-11-06 08:58] LABS: Band Neutrophils # (Manual) 0.2 K/mm3; Basophils % (Manual) 0 % (0.0-1.8); Eosinophils % (Manual) 0 % (0.0-4.3); Promyelocytes # (Manual) 0.2 K/mm3; Total Cells Counted 100
[2017-11-06 08:59] LABS: Platelet Estimate Consistent w Auto; RBC Morphology Normal
[2017-11-06] MEDS: LEVAQUIN PO SCH (09:57)
[2017-11-06] MEDS: SODIUM CHLORIDE FLUSH SYRINGE 10 ML IV SCH ×2 (10:16→21:44)
--- NOTE | 2017-11-06 10:56 | Progress Note ---
Assessment and Plan Assessment and plan: Acute hypoxemic respiratory failure. Continue O2 to maintain sats greater than 92%. BiPAP as clinically indicated. Sepsis. Continue to follow-up blood cultures. Bilateral pneumonia. Continue as above. Acute asthma exacerbation. Continue systemic steroids, bronchodilators and nebulizer treatments. DVT prophylaxis. SCDs History Interval history: No new issues overnight. Hospitalist Physical - Constitutional Vitals: Temp Pulse Resp BP Pulse Ox 97.6 F 79 20 117/75 93 11/06/17 07:38 11/06/17 07:38 11/06/17 07:38 11/06/17 07:38 11/06/17 07:38 General appearance: Present: no acute distress, well-nourished - EENT Eyes: Present: PERRL, EOM intact ENT: hearing intact, clear oral mucosa, dentition normal - Neck Neck: Present: supple, normal ROM - Respiratory Respiratory effort: normal Respiratory: bilateral: CTA - Cardiovascular Rhythm: regular Heart Sounds: Present: S1 & S2. Absent: gallop, rub - Extremities Extremities: no ischemia, No edema, Full ROM - Abdominal General gastrointestinal: soft, non-tender, non-distended, normal bowel sounds - Integumentary Integumentary: Present: clear, warm, dry - Neurologic Neurologic: CNII-XII intact, moves all extremities Results - Labs CBC & Chem 7: 11/06/17 06:55 11/06/17 06:55 Labs: Laboratory Last Values WBC 12.3 K/mm3 (4.5-11.0) H 11/06/17 06:55 RBC 5.03 M/mm3 (3.65-5.03) 11/06/17 06:55 Hgb 13.0 gm/dl (10.1-14.3) 11/06/17 06:55 Hct 40.5 % (30.3-42.9) 11/06/17 06:55 MCV 81 fl (79-97) 11/06/17 06:55 MCH 26 pg (28-32) L 11/06/17 06:55 MCHC 32 % (30-34) 11/06/17 06:55 RDW 14.4 % (13.2-15.2) 11/06/17 06:55 Plt Count 253 K/mm3 (140-440) 11/06/17 06:55 Lymph % (Auto) 12.9 % (13.4-35.0) L 11/05/17 05:54 [place] % (Auto) 3.9 % (0.0-7.3) 11/05/17 05:54 Eos % (Auto) 0.0 % (0.0-4.3) 11/05/17 05:54 Baso % (Auto) 0.3 % (0.0-1.8) 11/05/17 05:54 Lymph # 1.2 K/mm3 (1.2-5.4) 11/05/17 05:54 [place] # 0.4 K/mm3 (0.0-0.8) 11/05/17 05:54 Eos # 0.0 K/mm3 (0.0-0.4) 11/05/17 05:54 Baso # 0.0 K/mm3 (0.0-0.1) 11/05/17 05:54 Add Manual Diff Complete 11/06/17 06:55 Total Counted 100 11/06/17 06:55 Seg Neutrophils % 82.9 % (40.0-70.0) H 11/05/17 05:54 Seg Neuts % (Manual) 78.0 % (40.0-70.0) H 11/06/17 06:55 Band Neutrophils % 2.0 % 11/06/17 06:55 Lymphocytes % (Manual) 14.0 % (13.4-35.0) 11/06/17 06:55 Reactive Lymphs % (Man) 0 % 11/06/17 06:55 Monocytes % (Manual) 3.0 % (0.0-7.3) 11/06/17 06:55 Eosinophils % (Manual) 0 % (0.0-4.3) 11/06/17 06:55 Basophils % (Manual) 0 % (0.0-1.8) 11/06/17 06:55 Metamyelocytes % 1.0 % 11/06/17 06:55 Myelocytes % 0 % 11/06/17 06:55 Promyelocytes % 2.0 % 11/06/17 06:55 Blast Cells % 0 % 11/06/17 06:55 Nucleated RBC % Not Reportable 11/06/17 06:55 Seg Neutrophils # 7.8 K/mm3 (1.8-7.7) H 11/05/17 05:54 Seg Neutrophils # Man 9.6 K/mm3 (1.8-7.7) H 11/06/17 06:55 Band Neutrophils # 0.2 K/mm3 11/06/17 06:55 Lymphocytes # (Manual) 1.7 K/mm3 (1.2-5.4) 11/06/17 06:55 Abs React Lymphs (Man) 0.0 K/mm3 11/06/17 06:55 Monocytes # (Manual) 0.4 K/mm3 (0.0-0.8) 11/06/17 06:55 Eosinophils # (Manual) 0.0 K/mm3 (0.0-0.4) 11/06/17 06:55 Basophils # (Manual) 0.0 K/mm3 (0.0-0.1) 11/06/17 06:55 Metamyelocytes # 0.1 K/mm3 11/06/17 06:55 Myelocytes # 0.0 K/mm3 11/06/17 06:55 Promyelocytes # 0.2 K/mm3 11/06/17 06:55 Blast Cells # 0.0 K/mm3 11/06/17 06:55 WBC Morphology Not Reportable 11/06/17 06:55 Hypersegmented Neuts Not Reportable 11/06/17 06:55 Hyposegmented Neuts Not Reportable 11/06/17 06:55 Hypogranular Neuts Not Reportable 11/06/17 06:55 Smudge Cells Not Reportable 11/06/17 06:55 Toxic Granulation Not Reportable 11/06/17 06:55 Toxic Vacuolation Not Reportable 11/06/17 06:55 Dohle Bodies Not Reportable 11/06/17 06:55 Pel[place]-Huet Anomaly Not Reportable 11/06/17 06:55 Johnny Rods Not Reportable 11/06/17 06:55 Platelet Estimate Consistent w auto 11/06/17 06:55 Clumped Platelets Not Reportable 11/06/17 06:55 Plt Clumps, EDTA Not Reportable 11/06/17 06:55 Large Platelets Not Reportable 11/06/17 06:55 Giant Platelets Not Reportable 11/06/17 06:55 Platelet Satelliting Not Reportable 11/06/17 06:55 Plt Morphology Comment Not Reportable 11/06/17 06:55 RBC Morphology Normal 11/06/17 06:55 Dimorphic RBCs Not Reportable 11/06/17 06:55 Polychromasia Not Reportable 11/06/17 06:55 Hypochromasia Not Reportable 11/06/17 06:55 Poikilocytosis Not Reportable 11/06/17 06:55 Anisocytosis Not Reportable 11/06/17 06:55 Microcytosis Not Reportable 11/06/17 06:55 Macrocytosis Not Reportable 11/06/17 06:55 Spherocytes Not Reportable 11/06/17 06:55 Pappenheimer Bodies Not Reportable 11/06/17 06:55 Sickle Cells Not Reportable 11/06/17 06:55 Target Cells Not Reportable 11/06/17 06:55 Tear Drop Cells Not Reportable 11/06/17 06:55 Ovalocytes Not Reportable 11/06/17 06:55 Helmet Cells Not Reportable 11/06/17 06:55 Grimm-Kinross Bodies Not Reportable 11/06/17 06:55 [place] Rings Not Reportable 11/06/17 06:55 [place] Cells Not Reportable 11/06/17 06:55 Bite Cells Not Reportable 11/06/17 06:55 Crenated Cell Not Reportable 11/06/17 06:55 Elliptocytes Not Reportable 11/06/17 06:55 Acanthocytes (Spur) Not Reportable 11/06/17 06:55 Rouleaux Not Reportable 11/06/17 06:55 Hemoglobin C Crystals Not Reportable 11/06/17 06:55 Schistocytes Not Reportable 11/06/17 06:55 Malaria parasites Not Reportable 11/06/17 06:55 Kee Bodies Not Reportable 11/06/17 06:55 Hem Pathologist Commnt No 11/06/17 06:55 Sodium 137 mmol/L (137-145) 11/06/17 06:55 Potassium 3.9 mmol/L (3.6-5.0) 11/06/17 06:55 Chloride 97.2 mmol/L (98-107) L 11/06/17 06:55 Carbon Dioxide 21 mmol/L (22-30) L 11/06/17 06:55 Anion Gap 23 mmol/L 11/06/17 06:55 BUN 17 mg/dL (7-17) 11/06/17 06:55 Creatinine 0.5 mg/dL (0.7-1.2) L 11/06/17 06:55 Estimated GFR > 60 ml/min 11/06/17 06:55 BUN/Creatinine Ratio 34 % 11/06/17 06:55 Glucose 283 mg/dL (65-100) H 11/06/17 06:55 Lactic Acid 2.90 mmol/L (0.7-2.0) H* 11/05/17 09:09 Calcium 9.6 mg/dL (8.4-10.2) 11/06/17 06:55 Blood Type A POSITIVE 11/04/17 12:52 Antibody Screen Negative 11/04/17 12:52
[2017-11-06] MEDS ORDERED: DEEP SEA NS PRN (15:00)
[2017-11-06] MEDS ORDERED: PNEUMOVAX 23 IM ONE (16:00)
[2017-11-06] MEDS: SINGULAIR PO SCH (21:41)
[2017-11-07] MEDS: DUONEB *Not for PRN Use IH SCH ×2 (01:42→09:13)
[2017-11-07 07:28] LABS: Hematocrit 40.3 % (30.3-42.9); Hemoglobin 12.8 gm/dl (10.1-14.3); Mean Corpuscular HGB Conc 32 % (30-34); Mean Corpuscular Volume 81 fl (79-97); Platelet Count 298 K/mm3 (140-440); Red Blood Count 4.96 M/mm3 (3.65-5.03); Red Cell Distribution Width 14.7 % (13.2-15.2)
[2017-11-07 07:43] LABS: Mean Corpuscular Hemoglobin 26 pg (28-32)
[2017-11-07 07:53] LABS: BUN/Creatinine Ratio 28; Blood Urea Nitrogen 14 mg/dL (7-17); Calcium 9.8 mg/dL (8.4-10.2)
[2017-11-07 07:54] LABS: Hemolysis Index 10
[2017-11-07] MEDS: PULMICORT IH SCH (09:13)
[2017-11-07 09:38] VITALS: BP 108/61
[2017-11-07] MEDS: LEVAQUIN PO SCH (10:30)
[2017-11-07 11:09] LABS: Anisocytosis 1+; Basophils % (Manual) 0 % (0.0-1.8); Eosinophils % (Manual) 0 % (0.0-4.3); Total Cells Counted 100
[2017-11-07 11:10] LABS: Platelet Estimate Consistent w Auto
[2017-11-07] MEDS: SODIUM CHLORIDE FLUSH SYRINGE 10 ML IV SCH (12:02)
== END 2017-11-07 12:58 | disposition home or self-care (01) | DRG 871 ==
LOC: ED 22:21 → 3A 11-04 10:34
PROVIDERS: ADMIT Hospitalist; ATTEND Hospitalist
PROC: 3E0234Z Introduction of Serum, Toxoid and Vaccine into Muscle, Percutaneous Approach (ICD-10-PCS; principal; 2017-11-06)
DX: A41.9 Sepsis, unspecified organism (principal); J96.01 Acute respiratory failure with hypoxia; J18.9 Pneumonia, unspecified organism; J45.901 Unspecified asthma with (acute) exacerbation; Z68.42 Body mass index [BMI] 45.0-49.9, adult; E66.9 Obesity, unspecified; Z79.899 Other long term (current) drug therapy; Z79.51 Long term (current) use of inhaled steroids; Z79.2 Long term (current) use of antibiotics; Z88.1 Allergy status to other antibiotic agents; Z88.8 Allergy status to other drugs, medicaments and biological substances; Z98.51 Tubal ligation status; Z23 Encounter for immunization
CPT/HCPCS: 36415; 71046; 71260; 80048; 82140; 85007; 85025; 86850; 86900; 86901; 87040; 90732; 93005; 93010; 94640; 94760; 96361; 96374; 96375; J1956; J2270; J2405; J2930; J7030; Q9967